=== PATIENT | male | born 2000 | race Caucasian/White ===

== ENCOUNTER 2020-03-19 01:22 | Emergency (ER) | payer OTHER ==
[~2020-03-19] VITALS: Ht 177.8 cm; Wt 79.5 kg
--- OUTSIDE RECORDS SUMMARY | 2020-03-19 01:29 | XMS REPORT | Continuity of Care Document ---
Author Organization Unknown Address Unknown Phone Unavailable Allergies There is no data. Medications There is no data. Problems There is no data. Procedures There is no data. Results There is no data. Encounters ACCT No. Visit Date/Time Discharge Status Pt. Type Provider Facility Loc./Unit Complaint [id number] 01/08/2019 09:10:00 01/08/2019 23:59: 59 CLS Outpatient NEO SEVERINO [facility] IN [facility]
--- OUTSIDE RECORDS SUMMARY | 2020-03-19 01:29 | XMS REPORT ---
Author Author Joao MICHEL Organization [facility] RE Address [address] [place] [address] Care Team Providers Care Spinner Hand Name Role Phone CARROLL MICHEL Unavailable PROBLEMS Unknown Problems ALLERGIES No Known Allergies ENCOUNTERS Encounter Location Date Diagnosis [facility] [address] [id number] [place] [address] Dec, Influenza B J10.1 and Exposu re to influenza Z20.828 IMMUNIZATIONS No Known Immunizations SOCIAL HISTORY Never Assessed REASON FOR VISIT headache, stomach ache, Pt presents today with headache, nasal congestion, stoma ch ache. Pt stated congestion started 7 days prior body aches and stomach ache 4 days prior. Pricila Hidalgo (R) PLAN OF CARE Activity Details Follow Up if not improving with PCP or reg follow up Reason: VITAL SIGNS Height 69.5 in 2019-01-08 Weight 158 lbs 2019-01-08 Temperature 98.5 degrees Fahrenheit 2019-01-08 Heart Rate 86 bpm 2019-01-08 Oximetry 98 % 2019-01-08 BMI 23 kg/m2 2019-01-08 Blood pressure systolic 120 mmHg 2019-01-08 Blood pressure diastolic 64 mmHg 2019-01-08 MEDICATIONS Unknown Medications RESULTS Name Result Date Reference Range INFLUENZA A & B (IN HOUSE) 2019-01-08 INFLUENZA A NEG INFLUENZA B POS Control PASS Lot # [id number] Exp date 08-16-19 PROCEDURES Procedure Date Ordered Result Body Site INFLUENZA ASSAY W/OPTIC January 08, 2019 INSTRUCTIONS MEDICATIONS ADMINISTERED No Known Medications MEDICAL (GENERAL) HISTORY Type Description Date Medical History asthma Medical History attention deficit hyperactivity disorder Hospitalization History asthma exacerbation
[2020-03-19] MEDS ORDERED: RT-ALBUTEROL SULF 2.5 MG/3 ML PRE-MIX VIAL INH STA (01:31)
--- NOTE | 2020-03-19 01:31 | ED Respiratory ---
General Chief Complaint: Respiratory Problems Stated Complaint: BREATHING PROBLEMS Source: patient Exam Limitations: no limitations History of Present Illness Date Seen by Provider: Mar 19, 2020 Time Seen by Provider: 01:22 Initial Comments Patient has ER by private conveyance from home with chief complaint shortness of breath wheezing. He has a history of asthma. He ran out of his albuterol inhaler today. Recent travel to [place]. He has no fevers chills cough or sick contacts. He did take a Benadryl and NyQuil see if that would help him about an hour ago. He has no other significant medical history aside seasonal allergies. He does not smoke cigarettes. Allergies and Home Medications Allergies Coded Allergies: No Known Drug Allergies (Unverified , 03/19/20) Patient Home Medication List Home Medication List Reviewed: Yes Review of Systems Review of Systems Constitutional: No chills, No fever EENTM: No ear discharge, No ear pain Respiratory: No cough, No hemoptysis, No phlegm; short of breath, wheezing Cardiovascular: No chest pain, No Hx of Intervention, No palpitations Gastrointestinal: No abdominal pain, No constipation, No diarrhea, No nausea Genitourinary: No discharge, No dysuria Immunological/Allergic: grass allergy, pollen allergy All Other Systems Reviewed Negative Unless Noted: Yes Past Ghanzkn-Fibiam-Qcznsw Hx Patient Social History Alcohol Use: Denies Use Recreational Drug Use: No Smoking Status: Never a Smoker Recent Foreign Travel: No Contact w/Someone Who Travel: No Physical Exam Vital Signs - First Documented 03/19/20 01:30 Temp 35.9 Pulse 74 Resp 15 B/P (MAP) 139/81 (100) Pulse Ox 99 O2 Delivery Room Air Capillary Refill : Height: '" Weight: lbs. oz. kg; BMI Method: General Appearance: WD/WN, no apparent distress Eyes: Bilateral Eye Normal Inspection, Bilateral Eye PERRL, Bilateral Eye EOMI HEENT: PERRL/EOMI, normal ENT inspection, pharynx normal Neck: full range of motion, normal inspection Respiratory: lungs clear, no respiratory distress, no accessory muscle use (98- 100% on room air with nonlabored breathing), decreased breath sounds; No wheezing Cardiovascular: normal peripheral pulses, regular rate, rhythm Neurologic/Psychiatric: alert, normal mood/affect, oriented x 3 Skin: normal color, warm/dry Progress/Results/Core Measures Suspected Sepsis SIRS Temperature: Pulse: Respiratory Rate: Blood Pressure / Mean: Results/Orders My Orders Orders - MARICEL MORENO Albuterol Pre-Mix Nebs (Rt) (Proventil (03/19/20 01:31) Svn Small Volume Nebulizer (03/19/20 01:31) Vital Signs/I&O 03/19/20 01:30 Temp 35.9 Pulse 74 Resp 15 B/P (MAP) 139/81 (100) Pulse Ox 99 O2 Delivery Room Air Capillary Refill : Progress Note #1: Time: 01:34 Progress Note Him an albuterol treatment and re-auscultate. If he remains stable we can send him home with an albuterol MDI. Progress Note #2: Time: :45 Progress Note On repeat examination the patient's vital signs are unchanged he still satting 100% on room air. His lung sounds are little more prominent and possibly indicating he has opened up some airways but still no wheezing is heard. He does have concerns whether he might have COVID-19. He explained he does not have fever, adventitious lung sounds cough or other symptoms that might make us susp ect either an emergency, need for hospitalization or a high likelihood for viral pneumonia such as COVID-19. We suggested if he has concerns about this then he could follow-up with either the health department or his primary care doctor for testing. Departure Impression Primary Impression: Asthma exacerbation Qualified Codes: J45.21 - Mild intermittent asthma with (acute) exacerbation Additional Impression: History of seasonal allergies Disposition: 01 HOME, SELF-CARE Condition: Stable Departure-Patient Inst. Decision time for Depature: 01:45 Referrals: NO,LOCAL PHYSICIAN (PCP/Family) Primary Care Physician Patient Instructions: Asthma, Adult (DC), Seasonal Allergies in Adults Add. Discharge Instructions: Instead of Benadryl you might try a second generation all day antihistamine such as cetirizine or loratadine 10 mg daily. You can still use Benadryl on top of this every 6 hours if you have breakthrough itching or runny nose. Albuterol 2 puffs every 4 hours as needed for wheezing or shortness of air. Plan to follow up with your primary care doctor if you don't feel this is controlling your symptoms. Please return to the ER if you have worsening shortness of air or other worrisome symptoms. All discharge instructions reviewed with patient and/or family. Voiced understanding. MARICEL MORENO Mar 19, 2020 01:31
[2020-03-19] MEDS ORDERED: RX-ALBUTEROL INHALER (PROAIR) 8.5 GM IH STA (01:44)
[2020-03-19 01:49] VITALS: BP 122/64
== END 2020-03-19 01:50 | disposition home or self-care (01) ==
LOC: ER FS 01:26
DX: J45.901 Unspecified asthma with (acute) exacerbation (principal); Z87.898 Personal history of other specified conditions
CPT/HCPCS: 99283